=== PATIENT | female | born 1975 | race Caucasian/White ===

== ENCOUNTER 2016-10-15 00:31 | Emergency (ER) | payer OTHER ==
[~2016-10-15] VITALS: Ht 149.9 cm; Wt 86.4 kg
[2016-10-15 01:39] VITALS: BP 128/89
[2016-10-15] MEDS ORDERED: PROPARACAINE HCL 0.5% 15 ML OPHTHALMIC SOLUTION OU ONE (03:00)
[2016-10-15] MEDS ORDERED: ACETAMINOPHEN 500 MG TABLET PO ONE (03:00)
[2016-10-15] MEDS ORDERED: ERYTHROMYCIN 0.5% 3.5 GM TUBE OPHTHALMIC OINTMENT OS ONE (03:30)
== END 2016-10-15 03:39 | disposition home or self-care (01) ==
LOC: EMS 00:33
DX: H11.89 Other specified disorders of conjunctiva (principal); Z87.891 Personal history of nicotine dependence
CPT/HCPCS: 99284

== ENCOUNTER 2017-07-07 12:34 | Emergency (ER) | payer OTHER ==
[~2017-07-07] VITALS: Ht 149.9 cm; Wt 63.6 kg
[2017-07-07 12:36] VITALS: BP 136/79
[2017-07-07 12:47] LABS: GLUCOSE,POINT OF CARE 109 MG/DL (70-110)
[2017-07-07] MEDS ORDERED: PERTUSS(ACELL),DIPH,TET VAC/PF 0.5 ML VIAL IM ONE (14:30)
[2017-07-07] MEDS ORDERED: DOXYCYCLINE HYCLATE 100 MG CAPSULE PO ONE (14:30)
[2017-07-07] MEDS ORDERED: CIPROFLOXACIN HCL 250 MG TABLET PO ONE (14:30)
[2017-07-07 15:10] LABS: BASOPHILS % (AUTO) 0.7 % (0.0-2.0); EOSINOPHILS % (AUTO) 2.2 % (1.0-6.0); HEMATOCRIT 38.8 % (36-46); HEMOGLOBIN 13.1 g/dL (12.0-16.0); LYMPHOCYTES # (AUTO) 3.2 K/uL (1.0-4.8); LYMPHOCYTES % (AUTO) 24.1 % (22.0-44.0); MEAN CORPUSCULAR HGB CONC 33.6 G/dL (31.0-37.0); MEAN CORPUSCULAR VOLUME 83 fL (80-100); MONOCYTES # (AUTO) 0.7 K/uL (0.1-1.0); MONOCYTES % (AUTO) 5.6 % (2.0-9.0); NEUTROPHILS # (AUTO) 8.9 K/uL (1.8-7.7); NEUTROPHILS % (AUTO) 67.4 % (40.0-70.0); PLATELET COUNT (AUTO) 479 K/uL (150-450); RED BLOOD CELL COUNT(AUTO) 4.67 MIL/uL (4.00-5.20); RED CELL DISTRIBUTION WIDTH 14.3 % (11.5-14.5)
[2017-07-07 15:30] LABS: ANION GAP 5 mmol/L (8-16); CALCIUM, TOTAL 8.8 mg/dL (8.8-10.5); CARBON DIOXIDE 30 mmol/L (22-29); CHLORIDE 102 mmol/L (98-107); CREATININE 0.76 mg/dL (0.60-1.30); GLOMERULAR FILTR. RATE CALC > 60 mL/min (>60); GLUCOSE,RANDOM 96 mg/dL (70-110); POTASSIUM 4.1 mmol/L (3.5-5.1); SODIUM SERUM 137 mmol/L (136-145); UREA NITROGEN, BLOOD 5 mg/dL (7-18)
[2017-07-07 15:36] LABS: ALANINE AMINOTRANSFERASE 14 U/L (12-78); ALBUMIN 2.9 g/dL (3.4-5.0); ALKALINE PHOSPHATASE 72 U/L (46-116); ASPARTATE AMINOTRANSFERASE 11 U/L (15-37); BILIRUBIN,TOTAL 0.2 mg/dL (0.1-1.0); TOTAL PROTEIN, SERUM 7.5 g/dL (6.4-8.2)
== END 2017-07-07 16:05 | disposition home or self-care (01) ==
LOC: EMS 12:36
DX: L03.116 Cellulitis of left lower limb (principal); L03.115 Cellulitis of right lower limb; M79.89 Other specified soft tissue disorders; Z87.891 Personal history of nicotine dependence
CPT/HCPCS: 90471; 90715; 99285

== ENCOUNTER 2022-01-06 11:55 | Emergency (ER) | payer OTHER ==
[~2022-01-06] VITALS: Ht 149.9 cm; Wt 77.3 kg
[2022-01-06] MEDS ORDERED: ACETAMINOPHEN 500 MG TABLET PO ONE (14:15)
[2022-01-06] MEDS ORDERED: IBUPROFEN 600 MG TABLET PO ONE (14:15)
[2022-01-06 14:50] LABS: BASOPHILS % (AUTO) 0.4 % (0.0-2.0); EOSINOPHILS % (AUTO) 4.2 % (1.0-6.0); HEMATOCRIT 43.8 % (36-46); HEMOGLOBIN 14.3 g/dL (12.0-16.0); LYMPHOCYTES # (AUTO) 2.8 K/uL (1.0-4.8); LYMPHOCYTES % (AUTO) 38.5 % (22.0-44.0); MEAN CORPUSCULAR HEMOGLOBIN 26.4 pg (26.0-34.0); MEAN CORPUSCULAR HGB CONC 32.6 G/dL (31.0-37.0); MEAN CORPUSCULAR VOLUME 81 fL (80-100); MONOCYTES # (AUTO) 0.4 K/uL (0.1-1.0); MONOCYTES % (AUTO) 5.3 % (2.0-9.0); NEUTROPHILS # (AUTO) 3.7 K/uL (1.8-7.7); NEUTROPHILS % (AUTO) 51.6 % (40.0-70.0); PLATELET COUNT (AUTO) 386 K/uL (150-450); RED BLOOD CELL COUNT(AUTO) 5.41 MIL/uL (4.00-5.20); RED CELL DISTRIBUTION WIDTH 15.3 % (11.5-14.5)
[2022-01-06 14:56] LABS: ANION GAP 2 mmol/L (8-16); CARBON DIOXIDE 33 mmol/L (22-29); CHLORIDE 104 mmol/L (98-107); CREATININE 0.93 mg/dL (0.60-1.30); GLUCOSE,RANDOM 80 mg/dL (70-110); POTASSIUM 4.1 mmol/L (3.5-5.1); SODIUM SERUM 139 mmol/L (136-145); UREA NITROGEN, BLOOD 12 mg/dL (7-18)
[2022-01-06 14:57] LABS: GLOMERULAR FILTR. RATE CALC > 60 mL/min (>60)
[2022-01-06] MEDS ORDERED: CEPH-558 PO (16:31)
[2022-01-06] MEDS ORDERED: DOXY-354 PO (16:32)
[2022-01-06] MEDS ORDERED: IBUP-2070 PO (16:35)
[2022-01-06] MEDS ORDERED: HYDR-4723 PO (16:36)
[2022-01-06 18:16] VITALS: BP 137/87
== END 2022-01-06 18:27 | disposition home or self-care (01) ==
LOC: EMS 11:55
DX: L03.115 Cellulitis of right lower limb (principal); I10 Essential (primary) hypertension; F20.9 Schizophrenia, unspecified; F14.90 Cocaine use, unspecified, uncomplicated; F15.90 Other stimulant use, unspecified, uncomplicated; Z87.891 Personal history of nicotine dependence
CPT/HCPCS: 80048; 84702; 85025; 99284

== ENCOUNTER 2022-11-29 03:01 | Emergency (ER) | payer OTHER ==
[~2022-11-29] VITALS: Ht 149.9 cm; Wt 122.7 kg
[~2022-11-29 03:01] MED LIST: CEPH-558 PO; DOXY-354 PO; HYDR-4723 PO; IBUP-1492 PO
[2022-11-29 03:16] VITALS: BP 149/69; PULSE 113; RESP 17; TEMP 98.1
== END 2022-11-29 04:18 | disposition home or self-care (01) ==
LOC: EMS 03:03
DX: T14.8XXA Other injury of unspecified body region, initial encounter (principal); I10 Essential (primary) hypertension; F20.9 Schizophrenia, unspecified; F17.210 Nicotine dependence, cigarettes, uncomplicated; F14.90 Cocaine use, unspecified, uncomplicated; F15.90 Other stimulant use, unspecified, uncomplicated; F10.90 Alcohol use, unspecified, uncomplicated; Z53.21 Procedure and treatment not carried out due to patient leaving prior to being seen by health care provider; X58.XXXA Exposure to other specified factors, initial encounter; Y93.89 Activity, other specified; Y92.89 Other specified places as the place of occurrence of the external cause; Y99.8 Other external cause status
CPT/HCPCS: 99281; Z7502

== ENCOUNTER → 2024-02-12 | Emergency (ER) | payer OTHER ==
[~2024-02-12] VITALS: Ht 149.9 cm; Wt 100.0 kg
[~2024-02-12] MED LIST changes: +HYDR-4062 PO; -HYDR-4723 PO
[2024-02-12 04:43] VITALS: TEMP 97.6
[2024-02-12 06:40] LABS: COVID AG,FIA SOURCE NASAL SWAB
[2024-02-12 07:02] LABS: INFLUENZA TYPE A NEGATIVE FOR TYPE A (NEGATIVE); INFLUENZA TYPE B NEGATIVE FOR TYPE B (NEGATIVE); SARS-COV2 (COVID) ANTIGEN,FIA Negative (Negative)
[2024-02-12 07:30] VITALS: BP 147/92; PULSE 89; RESP 18; O2SAT 96
[2024-02-12] MEDS: ALBUTEROL SULFATE HFA 90 MCG/PUFF 8 GM INHALER IH ONE (07:41)
== END | disposition home or self-care (01) ==
LOC: EMS 04:39
DX: J06.9 Acute upper respiratory infection, unspecified (principal); F17.200 Nicotine dependence, unspecified, uncomplicated; I10 Essential (primary) hypertension; F20.9 Schizophrenia, unspecified; F14.90 Cocaine use, unspecified, uncomplicated; F15.90 Other stimulant use, unspecified, uncomplicated; Z20.822 Contact with and (suspected) exposure to COVID-19
CPT/HCPCS: 99283; 87426; 87804; 94640; J3535

== ENCOUNTER 2024-05-16 10:53 | Emergency (ER) | payer OTHER ==
[~2024-05-16] VITALS: Ht 152.4 cm; Wt 75.0 kg
[2024-05-16 11:55] VITALS: TEMP 98.6
[2024-05-16 13:42] VITALS: BP 184/112; PULSE 90; RESP 18; O2SAT 100
[2024-05-16] MEDS ORDERED: AMLO-257 PO (13:47)
[2024-05-16] MEDS: CloNIDine HCL 0.1 MG TABLET PO ONE (14:14)
[2024-05-16] MEDS: AmLODIPine BESYLATE 5 MG TABLET PO ONE (14:14)
== END 2024-05-16 14:16 | disposition left against medical advice (07) ==
LOC: EMS 10:54
DX: R45.851 Suicidal ideations (principal); I10 Essential (primary) hypertension; F20.9 Schizophrenia, unspecified
CPT/HCPCS: 99285; Z7502; Z7610